=== PATIENT | female | born 1940 | race Caucasian/White ===

== ENCOUNTER 2019-12-31 10:37 | Emergency (ER) | payer MEDICARE ==
[~2019-12-31] VITALS: Ht 162.6 cm; Wt 67.0 kg
[~2019-12-31 10:37] MED LIST: LEVO100T PO; OMEP10CA2 PO
[2019-12-31 10:38] VITALS: BP 169/73
[2019-12-31] MEDS ORDERED: DIPH,PERTUSS(ACELL),TET VAC/PF 0.5 ML IM-VACC ONE ×2 (11:30→11:35)
[2019-12-31] MEDS ORDERED: NEOSPORIN OINT. PKT 1 PACKET ONE (12:15)
[2019-12-31] MEDS ORDERED: BACITRACIN OINT 500U/GM, 15 GM TP ONE (12:30)
== END 2019-12-31 13:38 | disposition home or self-care (01) ==
LOC: ED 13:15
DX: S02.2XXA Fracture of nasal bones, initial encounter for closed fracture (principal); I10 Essential (primary) hypertension; W01.0XXA Fall on same level from slipping, tripping and stumbling without subsequent striking against object, initial encounter; Y93.89 Activity, other specified; Y92.410 Unspecified street and highway as the place of occurrence of the external cause; Y99.8 Other external cause status
CPT/HCPCS: 70450; 70486; 90471; 90715; 99285

== ENCOUNTER → 2020-04-22 | Outpatient (CLI) | payer MEDICARE ==
[~2020-04-22] MED LIST changes: +CHOL10003 PO; +ESTR1PAT25 TD; +GARLIC PO; +INOSITOL PO; +L.AC1CAP6 PO; +LOSA1TAB19 PO; +MULT-717 PO; +OMEG1CAP6 PO; +ROSU5TAB PO; +S-AD200T PO; +VIT1CAPS11 PO
[2020-04-22 13:09] LABS: ALBUMIN 3.6 g/dL (3.4-5.0); ANION GAP 4 mmol/L (5-15); CALCIUM 9.5 mg/dL (8.5-10.1); CHLORIDE 107 mmol/L (98-107)
[2020-04-22 13:12] LABS: ALANINE AMINOTRANSFERASE 31 U/L (12-78); ALKALINE PHOSPHATASE 71 U/L (45-117); BILIRUBIN,TOTAL 0.6 mg/dL (0.2-1.0); CREATININE 0.68 mg/dL (0.55-1.02); TOTAL PROTEIN 7.2 g/dL (6.4-8.2)
== END | disposition home or self-care (01) ==
LOC: STAR 11:02
PROVIDERS: ATTEND Otolaryngology Facial Plastic Surgery
DX: Z01.818 Encounter for other preprocedural examination (principal); J34.2 Deviated nasal septum; Z20.822 Contact with and (suspected) exposure to COVID-19
CPT/HCPCS: 71046; 80053; 87635; 93005

== ENCOUNTER → 2020-05-07 | Outpatient (CLI) | payer MEDICARE | END | disposition home or self-care (01) | LOC: STAR 11:33 | PROVIDERS: ATTEND Anesthesiology | DX: Z20.822 Contact with and (suspected) exposure to COVID-19 (principal) | CPT/HCPCS: 87635 ==

== ENCOUNTER → 2020-07-16 | Outpatient (CLI) | payer MEDICARE ==
[~2020-07-16] MED LIST changes: +UBID1CAP43 PO
[2020-07-16 12:32] LABS: ALANINE AMINOTRANSFERASE 33 U/L (12-78); ALBUMIN 3.7 g/dL (3.4-5.0); CALCIUM 9.5 mg/dL (8.5-10.1); CREATININE 0.65 mg/dL (0.55-1.02)
[2020-07-16 12:34] LABS: ALKALINE PHOSPHATASE 71 U/L (45-117); BILIRUBIN,TOTAL 0.5 mg/dL (0.2-1.0); TOTAL PROTEIN 7.3 g/dL (6.4-8.2)
[2020-07-16 12:47] LABS: ANION GAP 4 mmol/L (5-15); CHLORIDE 107 mmol/L (98-107)
== END | disposition home or self-care (01) ==
LOC: STAR 11:01
PROVIDERS: ATTEND Otolaryngology Facial Plastic Surgery
DX: Z01.812 Encounter for preprocedural laboratory examination (principal); J34.2 Deviated nasal septum; Z20.822 Contact with and (suspected) exposure to COVID-19
CPT/HCPCS: 36415; 80053; U0003; U0005

== ENCOUNTER 2020-07-21 12:49 | Day surgery (SDC) | payer MEDICARE ==
[~2020-07-21] VITALS: Ht 162.6 cm; Wt 68.3 kg
[2020-07-21 13:06] VITALS: BP 132/77
[2020-07-21] MEDS ORDERED: CHLORHEXIDINE 15 ML UDC PO ONE (13:30)
[2020-07-21] MEDS ORDERED: LACTATED RINGERS 1,000 ML IV SCH (13:30)
[2020-07-21] MEDS ORDERED: NEOSPORIN OINT, 15GM ONE (14:47)
[2020-07-21] MEDS ORDERED: LIDOCAINE/PF 1%-EPI 1:200K, 30 ML ONE (14:47)
[2020-07-21] MEDS ORDERED: COCAINE TOPICAL SOLN 4%, 4ML ONE (14:48)
[2020-07-21] MEDS ORDERED: OXYMETAZOLINE NASAL SPRAY 0.05%,30ML ONE (14:48)
[2020-07-21] MEDS ORDERED: MIDAZOLAM 1 MG/ML, 2ML ONE (14:58)
[2020-07-21] MEDS ORDERED: FENTANYL PF 100 MCG/2ML ONE (14:58)
[2020-07-21] MEDS ORDERED: PROMETHAZINE 25 MG/ML, 1ML IVPush PRN (15:00)
[2020-07-21] MEDS ORDERED: FENTANYL PF 100 MCG/2ML IV PRN (15:00)
[2020-07-21] MEDS ORDERED: LABETALOL 5MG/ML, 20ML IV PRN (15:00)
[2020-07-21] MEDS ORDERED: MEPERIDINE/PF 25MG/0.5ML IVPush PRN (15:00)
[2020-07-21] MEDS ORDERED: HALOPERIDOL 5 MG/ML IV PRN (15:00)
[2020-07-21] MEDS ORDERED: DIPHENHYDRAMINE 50 MG/ML, 1ML IVPush PRN (15:00)
[2020-07-21] MEDS ORDERED: HYDROmorphone 1 MG/ML, 1ML INJ IVPush PRN (15:00)
[2020-07-21] MEDS ORDERED: hydrALAzine 20 MG/ML, 1ML IV PRN (15:00)
[2020-07-21] MEDS ORDERED: DEXAMETHASONE 4 MG/ML, 1ML ONE (15:44)
[2020-07-21] MEDS ORDERED: SUCCINYLCHOLINE 20 MG/ML, 10ML ONE (15:44)
[2020-07-21] MEDS ORDERED: ONDANSETRON 2MG/ML, 2ML ONE (15:44)
[2020-07-21] MEDS ORDERED: PROPOFOL 10 MG/ML, 20ML ONE (15:44)
[2020-07-21] MEDS ORDERED: NEOSTIGMINE 1 MG/ML, 10ML ONE (15:44)
[2020-07-21] MEDS ORDERED: GLYCOPYRROLATE 0.2MG/1ML, 5ML ONE (15:44)
[2020-07-21] MEDS ORDERED: ROCURONIUM 10MG/ML,5ML ONE (15:44)
[2020-07-21] MEDS ORDERED: CEFAZOLIN 1,000 MG ONE (15:44)
[2020-07-21] MEDS: OXYcodone 5 MG/5 ML ORAL.SOL UDC PO PRN ×2 (16:30→17:00)
[2020-07-21] MEDS ORDERED: OXYcodone 5 MG/5 ML ORAL.SOL UDC ONE (16:32)
== END 2020-07-21 18:20 | disposition home or self-care (01) ==
LOC: OUT 12:49
PROVIDERS: ATTEND Otolaryngology Facial Plastic Surgery
DX: S02.2XXA Fracture of nasal bones, initial encounter for closed fracture (principal); J34.2 Deviated nasal septum; I10 Essential (primary) hypertension; E78.5 Hyperlipidemia, unspecified; E03.9 Hypothyroidism, unspecified; Z79.899 Other long term (current) drug therapy; Z88.8 Allergy status to other drugs, medicaments and biological substances; Z91.040 Latex allergy status; Z91.018 Allergy to other foods; X58.XXXA Exposure to other specified factors, initial encounter; Y93.89 Activity, other specified; Y92.89 Other specified places as the place of occurrence of the external cause; Y99.8 Other external cause status
CPT/HCPCS: 30520; 88304; 88311; J0330; J0690; J1100; J2250; J2405; J2704; J3010; J7120; J2710